=== PATIENT | female | born 1935 | race Caucasian/White ===

== ENCOUNTER 2019-06-22 14:00 | Emergency (ER) | payer OTHER ==
[2019-06-22 14:13] VITALS: BP 122/71; PULSE 85; TEMP 98.4; BMI 27.3
--- NOTE | 2019-06-22 14:23 | PDOC ---
History of Present Illness - General Chief Complaint: Back Pain Stated Complaint: BACK PAIN Time Seen by Provider: 06/22/19 14:22 - History of Present Illness Initial Comments: 06/22/19 16:06 Chief complaint: Low back pain HPI: Low back pain, right sacral area, for several days. Pain radiates into the buttock and posterior thigh. Denies distal numbness tingling pain or weakness. No acute injury. Episodes of back pain in the past, but not as severe. Review of systems: Denies fever/chills, URI symptoms, sore throat, cough, chest pain, shortness of breath, abdominal pain, nausea, vomiting, diarrhea, visual or focal neurologic symptoms, unsteadiness of gait, urinary tract symptoms, vaginal bleeding or discharge. Past medical history: Hypothyroidism, dry eyes, dyspepsia. Social history: Denies tobacco alcohol or drugs. Stable home and family. No significant disability Family history: Reviewed and noncontributory Physical exam: Alert and oriented well-developed well-nourished mild distress due to low back pain, but cheerful and cooperative Afebrile, vital signs normal HEENT normal Neck supple without bruit mass or nodes Chest clear CV regular without murmur rub or gallop Abdomen soft nontender without mass organomegaly LS spine: Mild straightening of the normal lumbar lordosis. No point tenderness , deformity, or inflammatory changes over the spine. Straight leg raising is negative. No distal sensory or motor deficits demonstrable. Pulses full and symmetric. Impression: Low back strain, primarily musculoskeletal, Plan: Patient responded well to Toradol IM. Pain much improved and ambulating without difficulty. Continue anti-inflammatory, Percocet at bedtime if needed, and follow-up blood bank specialist 5 to 7 days if there is no improvement. Fully ambulatory, cheerful, and in no pain or other distress at discharge with to follow-up as directed Past History - Past Medical History Allergies/Adverse Reactions: Allergies Allergy/AdvReac Type Severity Reaction Status Date / Time No Known Allergies Allergy Verified 06/22/19 14:01 Home Medications: Ambulatory Orders Cyclosporine [Restasis] 1 drop OP DAILY 06/22/19 Ibuprofen 400 mg PO TID #15 tablet 06/22/19 Levothyroxine [Synthroid -] 25 mcg PO DAILY 06/22/19 Oxycodone HCl/Acetaminophen [Percocet 5-325 mg Tablet] 1 tab PO HS PRN #10 tablet MDD 1 06/22/19 Pantoprazole Sodium 40 mg PO DAILY 06/22/19 Pramipexole Di-HCl [Mirapex] 0.25 mg PO ASDIR 06/22/19 Zolpidem Tartrate 10 mg PO HS 06/22/19 hydrOXYzine PAMOATE [Vistaril -] 25 mg PO TID #15 capsule 06/22/19 Cardiac Disorders: Yes (ANGIOPLASTY X2) COPD: No GI Disorders: Yes (gerd, constipation) HTN: Yes (HTN no meds) - Surgical History Cardiac Surgery: Yes (CABG 2012) Cholecystectomy: Yes - Immunization History Td Vaccination: Yes Immunization Up to Date: No - Psycho Social/Smoking Cessation Hx Smoking Status: No Smoking History: Never smoked Have you smoked in the past 12 months: No Number of Cigarettes Smoked Daily: 0 Information on smoking cessation initiated: No Hx Alcohol Use: No Drug/Substance Use Hx: No *Physical Exam - Vital Signs Last Vital Signs Temp Pulse Resp BP Pulse Ox 98.4 F 85 18 122/71 98 06/22/19 14:00 06/22/19 14:00 06/22/19 14:00 06/22/19 14:00 06/22/19 14:00 Discharge - Discharge Information Problems reviewed: Yes Clinical Impression/Diagnosis: Low back pain Condition: Improved Disposition: HOME - Admission No - Additional Discharge Information Prescriptions: hydrOXYzine PAMOATE [Vistaril -] 25 mg PO TID #15 capsule Ibuprofen 400 mg PO TID #15 tablet Oxycodone HCl/Acetaminophen [Percocet 5-325 mg Tablet] 1 tab PO HS PRN #10 tablet MDD 1 PRN Reason: Severe Pain - Follow up/Referral Referrals: Riley Lee MD [Staff Physician] - 14 days - Patient Discharge Instructions Additional Instructions: Avoid sitting in a chair or in a car. Heat to lower back Medication as directed See back specialist if no improvement 1 to 2 weeks as directed. - Post Discharge Activity
[2019-06-22] MEDS ORDERED: KETOROLAC TROMETHAMINE 60 MG/2 ML VIAL IM ONE ×2 (14:37→14:54)
[2019-06-22] MEDS ORDERED: hydrOXYzine PAMOATE 25 MG CAPSULE (FP) PO ONE ×3 (14:37→14:57)
[2019-06-22] MEDS ORDERED: KETOROLAC TROMETHAMINE 30 MG/1 ML VIAL ONE (14:57)
== END 2019-06-22 16:00 | disposition home or self-care (01) ==
LOC: FER 14:00
PROC: 3E0233Z Introduction of Anti-inflammatory into Muscle, Percutaneous Approach (ICD-10-PCS; principal; 2019-06-22)
DX: M54.5 Low back pain (principal); I10 Essential (primary) hypertension; K21.9 Gastro-esophageal reflux disease without esophagitis; K59.00 Constipation, unspecified
CPT/HCPCS: 99283-25

== ENCOUNTER 2019-07-10 06:16 | Day surgery (SDC) | payer OTHER ==
[2019-07-09 18:14] VITALS: BMI 26.4
[2019-07-10] MEDS ORDERED: LIDOCAINE HCL 1%, 10 MG/ML (20ML VIAL) ONE (07:10)
[2019-07-10] MEDS ORDERED: DEXAMETHASONE SOD PHOSPHATE/PF 10 MG/ML SDV ONE (07:10)
[2019-07-10] MEDS ORDERED: TRIAMCINOLONE ACET 40MG/1ML VIAL ONE (07:10)
[2019-07-10] MEDS ORDERED: BETAMET ACET/BETAMET NA PH 30 MG/5 ML VIAL ONE (07:10)
[2019-07-10] MEDS ORDERED: BUPIVACAINE HCL/PF 0.75% 10 ML VIAL ONE (07:11)
[2019-07-10] MEDS ORDERED: PROPOFOL 20 ML ONE (07:48)
[2019-07-10] MEDS ORDERED: LIDOCAINE HCL/PF 2% SDV 5ML VIAL ONE (07:49)
--- NOTE | 2019-07-10 08:12 | HP ---
Admitting History and Physical - Admission Chief Complaint: Right Low back and Leg Pain History of Present Illness: Pt has right low back and leg pain due to lumbar radiculopathy. - Smoking History Smoking history: Never smoked Have you smoked in the past 12 months: No Aproximately how many cigarettes per day: 0 - Alcohol/Substance Use Hx Alcohol Use: No Home Medications - Allergies Allergies/Adverse Reactions: Allergies Allergy/AdvReac Type Severity Reaction Status Date / Time No Known Allergies Allergy Verified 07/10/19 06:48 - Home Medications Home Medications: Ambulatory Orders Cyclosporine [Restasis] 1 drop OP DAILY 06/22/19 Levothyroxine [Synthroid -] 25 mcg PO DAILY 06/22/19 Pantoprazole Sodium 40 mg PO DAILY 06/22/19 Zolpidem Tartrate 10 mg PO HS 06/22/19 Acetaminophen [Tylenol] 650 mg PO PRN PRN 07/10/19 Celecoxib 200 mg PO DAILY 07/10/19 Physical Examination Vital Signs: Vital Signs Temperature 98.3 F 07/10/19 06:47 Pulse Rate 92 H 07/10/19 06:47 Respiratory Rate 07/10/19 06:47 Blood Pressure 154/72 07/10/19 06:47 O2 Sat by Pulse Oximetry (%) 98 07/10/19 06:44 Constitutional: Yes: Well Nourished, No Distress, Calm Eyes: Yes: Conjunctiva Clear HENT: Yes: Normocephalic Neck: Yes: Trachea Midline Cardiovascular: Yes: Regular Rate and Rhythm Respiratory: Yes: Regular Musculoskeletal: Yes: Back Pain Neurological: Yes: Alert, Oriented Assessment/Plan The patient pain is secondary to Lumabr radiculopathy due ot L4-L5 right paracentral disc protrusion. 1. Will perform right L4-L5 TFESI. 2. Follow up in 2 weeks. Zay Macario DO
[2019-07-10] MEDS ORDERED: LIDOCAINE HCL 4% PRESERVE-FREE 5 ML AMP ONE (08:23)
[2019-07-10] MEDS ORDERED: LIDOCAINE HCL 2% (20ML MULTI-DOSE VIAL) ONE (08:23)
[2019-07-10] MEDS ORDERED: LIDOCAINE HCL/PF 1% SDV 5ML VIAL ONE (08:23)
[2019-07-10] MEDS ORDERED: LIDOCAINE HCL 1%, 10 MG/ML (20ML VIAL) NR ONE ×2 (08:32)
[2019-07-10] MEDS ORDERED: LIDOCAINE HCL 1% PRESERVATIVE FREE - 30ML VIAL IJ ONE (08:33)
[2019-07-10] MEDS ORDERED: DEXAMETHASONE SOD PHOSPHATE 10 MG/1 ML VIAL IVPUSH ONE (08:34)
[2019-07-10] MEDS ORDERED: IOHEXOL 180 MG/1 ML ML IJ ONE ×2 (08:34)
[2019-07-10 09:34] VITALS: BP 137/80; PULSE 82; TEMP 98.7
--- NOTE | 2019-07-11 15:40 | PROC ---
Procedure Note Procedure: Date: 07/10/2019 : 1935 Age: 83 Year(s) Sex: Female Name of the patient: Yadi Palomo Preoperative Diagnosis: Low Back pain and Lumbar radiculopathy Postoperative Diagnosis: Same Procedure Performed: Lumbar Epidural steroid injection Transforaminal L4 and L5 on Right Anesthesia: Local Procedure: After the risks and benefits were explained, informed consent was obtained. The patient was then taken to the procedure room and positioned prone on the procedure table. Time out was performed. The region overlying the Right L4 and L5 neural foramens were identified using fluoroscopy. The skin was prepped and draped in the usual sterile fashion. The skin and soft tissues were anesthetized using 1% lidocaine. The neural foramens were identified with the fluoroscopic beam directed in a right oblique direction. 2 22 gauge 3.5 inch spinal needles were then introduced into the appropriate neural foramens using intermittent fluoroscopic guidance using AP, oblique and lateral views as indicated. Needle placement was then confirmed with the injection of Omnipaque 180. Epidural flow was noted and the nerve root was outlined. No vascular uptake was noted. Next, a mixture 1.5 cc of dexamethasone and 1% lidocaine followed by 0.5 cc of 1% lidocaine was then injected around the Right L4 and L5 spinal nerves. The patient tolerated the procedure well and there were no complications. The patient was taken to the post procedure recovery area in good condition. Vital signs remained stable before, during, and after the procedure. The patient was given oral and written follow-up instructions. The patient was given a follow up appointment with me in the near future. Zay Macario DO ^
== END 2019-07-10 09:35 | disposition home or self-care (01) ==
LOC: JASU-SURG 06:16
PROVIDERS: ATTEND Pain Medicine Pain Medicine
PROC: 3E0R33Z Introduction of Anti-inflammatory into Spinal Canal, Percutaneous Approach (ICD-10-PCS; 2019-07-10)
PROC: 3E0R3BZ Introduction of Anesthetic Agent into Spinal Canal, Percutaneous Approach (ICD-10-PCS; principal; 2019-07-10 08:00)
DX: M54.16 Radiculopathy, lumbar region (principal); M54.5 Low back pain
CPT/HCPCS: 76000-TC-FY; J1100

== ENCOUNTER 2020-07-03 15:35 | Emergency (ER) | payer OTHER ==
[2020-07-03 15:42] VITALS: TEMP 97.9; BMI 23.6
[2020-07-03] MEDS ORDERED: BAMLANIVIMAB 700 MG in SODIUM CHLORIDE 250 ML IVPB ONE (15:55)
[2020-07-03 16:44] LABS: HEMATOCRIT 36.6 % (32.4-45.2); HEMOGLOBIN 12.2 GM/dL (10.7-15.3); MCHC 33.3 g/dl (32.0-36.0); MEAN CELL VOLUME 89.9 fl (80-96); MEAN PLT VOLUME 9.3 fl (7.5-11.1); PLATELET COUNT 207 K/MM3 (134-434); RBC 4.07 M/mm3 (3.60-5.2); RDW 13.5 % (11.6-15.6); WHITE BLOOD COUNT 5.4 K/mm3 (4.0-10.0)
[2020-07-03 17:05] LABS: POTASSIUM 4.7 mmol/L (3.5-5.1)
[2020-07-03 17:06] LABS: CALCIUM 8.5 mg/dL (8.5-10.1)
[2020-07-03 17:07] LABS: BLOOD UREA NITROGEN 11.9 mg/dL (7-18)
[2020-07-03 17:10] LABS: CREATININE 0.8 mg/dL (0.55-1.3)
[2020-07-03 17:22] VITALS: PULSE 85
[2020-07-03 18:52] VITALS: BP 147/70
== END 2020-07-03 19:40 | disposition home or self-care (01) ==
LOC: JER 15:35
DX: U07.1 COVID-19 (principal)
CPT/HCPCS: 36415; 71045-TC-FY; 80048; 85027; 99284-25; M0239; Q0239